=== PATIENT | female | born 1990 | race Two or more races ===

== ENCOUNTER 2021-11-17 06:05 | Day surgery (SDC) | payer OTHER ==
[~2021-11-17] VITALS: Ht 154.9 cm; Wt 66.7 kg
== END 2021-11-17 15:45 | disposition home or self-care (01) ==
LOC: CIR.AMB 06:05
PROVIDERS: ATTEND Colon & Rectal Surgery
DX: K64.8 Other hemorrhoids (principal); Z20.822 Contact with and (suspected) exposure to COVID-19; Z86.16 Personal history of COVID-19